=== PATIENT | female | born 1985 ===

== ENCOUNTER 2020-05-05 09:58 | Outpatient (REF) | payer MEDICAID, SELFPAY ==
--- NOTE | 2020-05-05 | US_ITS ---
EXAMINATION: US ABDOMEN COMPLETE CLINICAL INFORMATION: Abnormal level of serum enzymes. COMPARISON: None TECHNIQUE: Real-time imaging of the abdominal viscera. FINDINGS: PANCREAS: Normal. ABDOMINAL AORTA: The proximal, mid, and distal segments are normal in caliber. INFERIOR VENA CAVA: Visualized portions are normal. LIVER: The liver is normal in size. The liver contour is normal. There is diffuse increased liver parenchymal echogenicity, consistent with hepatic steatosis. No focal hepatic lesion. There is no intrahepatic biliary duct dilatation seen. GALLBLADDER: Normal. The gallbladder is physiologically distended without evidence of stones, sludge, polyps, wall thickening or pericholecystic fluid. COMMON BILE DUCT: Normal in caliber measuring 0.3 cm in diameter. RIGHT KIDNEY: Normal. No hydronephrosis. No renal calculi or focal parenchymal lesions. The kidney measures 12.1 cm in maximum dimension. LEFT KIDNEY: Normal. No hydronephrosis. No renal calculi or focal parenchymal lesions. The kidney measures 13.3 cm in maximum dimension. SPLEEN: Normal. The spleen measures 10.5 cm in maximum dimension. FREE FLUID: None. US/US abdomen complete IMPRESSION: Hepatic steatosis. Otherwise unremarkable abdominal ultrasound.
== END 2020-05-05 09:59 | disposition home or self-care (01) ==
LOC: HO.US 09:58
DX: R74.8 Abnormal levels of other serum enzymes (principal)
CPT/HCPCS: 76700

== ENCOUNTER → 2020-05-20 10:49 | Outpatient (BNVA) | payer MEDICAID, SELFPAY | PROVIDERS: PCP Nurse Practitioner Primary Care; Visit Provider Physician Assistant | DX: Z76.89 Persons encountering health services in other specified circumstances (principal) ==

== ENCOUNTER → 2020-06-04 08:22 | Outpatient (BNVA) | payer MEDICAID, SELFPAY | PROVIDERS: PCP Nurse Practitioner Primary Care; Visit Provider Surgery | DX: Z76.89 Persons encountering health services in other specified circumstances (principal) ==

== ENCOUNTER 2020-06-16 10:43 | Outpatient (REF) | payer MEDICAID, SELFPAY ==
--- NOTE | 2020-06-16 11:14 | ECG_ITS ---
Test Reason : R73.03 Blood Pressure : / mmHG Vent. Rate : 094 BPM Atrial Rate : 094 BPM P-R Int : 142 ms QRS Dur : 076 ms QT Int : 370 ms P-R-T Axes : 006 058 -11 degrees QTc Int : 462 ms Normal sinus rhythm Nonspecific ST and T wave abnormality Borderline ECG No previous ECGs available Referred By: Fei Mishra Electronically Signed By:LILLI MOODY
--- NOTE | 2020-06-16 11:33 | XR_ITS ---
EXAMINATION: XR CHEST CLINICAL INFORMATION: Diabetes. COMPARISON: None TECHNIQUE: 2 views of the chest were obtained. FINDINGS: No significant abnormality is noted involving the heart, lungs, mediastinum, bony thorax or soft tissues. XR/XR chest 2V IMPRESSION: Unremarkable chest examination.
[2020-06-16 12:11] LABS: Basophils Percent Auto 0.4 % (0-2); Eosinophils Absolute Auto 0.1 X10*3/uL (0.0-0.4); Eosinophils Percent Auto 1.2 % (0-4); Hematocrit 42.6 % (37-47); Hemoglobin 13.6 g/dl (12.0-16.0); Imm Gran Abs Auto 0.03 X10*3/uL (0.00-0.03); Imm Gran Pct Auto 0.6 % (0.0-0.4); Lymphocytes Absolute Auto 1.6 X10*3/uL (1.2-4.9); Lymphocytes Percent Auto 31.9 % (20-40); MANUAL DIFF FLAG NO; Mean Corpuscular HGB Conc 31.9 g/dl (31.0-35.0); Mean Corpuscular Hemoglobin 28.8 pg (27.0-33.0); Mean Corpuscular Volume 90.1 fL (80-98); Mean Platelet Volume 10.7 fL (9.4-12.3); Monocytes Absolute Auto 0.4 X10*3/uL (0.1-1.2); Monocytes Percent Auto 8.7 % (2-11); Neutrophils Absolute Auto 2.9 X10*3/uL (2.0-8.3); Neutrophils Percent Auto 57.2 % (45-73); Platelet Count 225 X10*3/uL (160-400); Red Blood Count 4.73 X10*6/uL (4.20-5.50); Red Cell Distribution Width 12.4 % (11.0-16.0); White Blood Count 5.1 X10*3/uL (4.8-10.8)
[2020-06-16 12:28] LABS: Alanine Aminotransferase 51 U/L (0-31); Albumin Level 4.4 g/dL (3.5-5.0); Alkaline Phosphatase 56 U/L (39-117); Anion Gap 12 (12-20); Aspartate Amino Transferase 26 U/L (5-31); Bilirubin Total 0.7 mg/dL (0.0-1.0); Blood Urea Nitrogen 12 mg/dL (9-16); Calcium 9.2 mg/dL (8.4-10.2); Carbon Dioxide 27 mmol/L (22-29); Chloride 105 mmol/L (96-108); Cholesterol 191 mg/dL; Estimated Glomerular Filt Rate > 60; Glucose Random 106 mg/dL (60-115); HDL Cholesterol 40 mg/dL; LDL Cholesterol Calculated 116 mg/dl; Potassium 4.1 mmol/l (3.3-5.1); Sodium 140 mmol/L (135-145); Total Protein 7.9 g/dL (6.5-8.0); Triglycerides 179 mg/dL
[2020-06-16 12:42] LABS: Estimated Average Glucose 114 mg/dL; Hemoglobin A1c % 5.6 %
[2020-06-16 12:51] LABS: Ferritin 120 ng/mL (10-122); Vitamin D 25-OH Total 20.2 ng/mL (>30)
[2020-06-16 13:52] LABS: Folate 11.6 ng/mL (> or = 4.0); Vitamin B12 249 pg/mL (200-900)
[2020-06-17 13:47] LABS: Insulin Level Total 33.6 uIU/mL
[2020-06-17 20:22] LABS: Calcium (PTHI) 9.4 mg/dL (8.6-10.2); PTHI 61 pg/mL (14-64)
[2020-06-19 00:48] LABS: Zinc 91 mcg/dL (60-130)
[2020-06-19 12:52] LABS: Vitamin B1 9 nmol/L (8-30)
[2020-06-23 18:23] LABS: Vitamin A 38 mcg/dL (38-98)
== END 2020-06-16 10:44 | disposition home or self-care (01) ==
LOC: HO.LAB 10:43
PROVIDERS: Visit Provider Surgery
DX: R73.03 Prediabetes (principal); K21.9 Gastro-esophageal reflux disease without esophagitis; J45.909 Unspecified asthma, uncomplicated; E66.9 Obesity, unspecified
CPT/HCPCS: 36415; 71046; 80053; 80061; 82306; 82607; 82728; 82746; 83036; 83525; 83970; 84425; 84443; 84590; 84630; 85025; 86140; 93005

== ENCOUNTER → 2020-06-24 12:58 | Outpatient (BNVA) | payer MEDICAID, SELFPAY | PROVIDERS: PCP Nurse Practitioner Primary Care; Visit Provider Dietitian, Registered | DX: Z76.89 Persons encountering health services in other specified circumstances (principal) ==

== ENCOUNTER 2020-06-30 09:38 | Outpatient (REF) | payer MEDICAID, SELFPAY ==
--- NOTE | 2020-06-30 09:46 | US_ITS ---
EXAMINATION: US ABDOMEN LIMITED WITH ELASTOGRAPHY CLINICAL INFORMATION: Pre-diabetes COMPARISON: Abdomen ultrasound complete 05/05/2020 TECHNIQUE: Limited right upper quadrant abdominal ultrasound performed. FINDINGS: The pancreatic head and the body is homogeneous in echotexture. The tail is obscured by overlying gas. The liver is diffusely echogenic consistent with fatty infiltration. There is focal fatty sparing around the gallbladder. No intrahepatic ductal dilatation seen. The right hepatic lobe measures 16.2 cm in length and the left hepatic lobe measures 13.0 cm in length. On Elastography, median value is 1.36 m/second. IQR/median is 0.11. US/US abdomen cristina w elastography IMPRESSION: 1. Hepatic steatosis with areas of focal fatty sparing anterior to gallbladder. 2. The rest of the limited abdomen ultrasound is unremarkable. 3. On Elastography, there is normal to mild fibrosis.
--- NOTE | 2020-06-30 09:46 | FL_ITS ---
EXAMINATION: XR GI SERIES CLINICAL INFORMATION: Prediabetes. Preop possible bariatric surgery. COMPARISON: None TECHNIQUE: Upper GI was performed using thin and thick barium and effervescent granules. FINDINGS: Esophageal motility is normal. There is gastroesophageal reflux. There is a small sliding hiatal hernia. The stomach and duodenum are normal-appearing. No fold thickening, mass, ulcer or stricture is seen. FLUOROSCOPY TIME: 1 minute DOSE AREA PRODUCT: 14 jasmine per centimeter squared. Total dose 53 mgy. 26 saved fluoroscopic images FL/FL upper GI series IMPRESSION: Gastroesophageal reflux and small sliding-type hiatal hernia.
== END 2020-06-30 09:39 | disposition home or self-care (01) ==
LOC: HO.XRAY 09:38
PROVIDERS: Visit Provider Surgery
DX: E66.9 Obesity, unspecified (principal); R73.03 Prediabetes; K21.9 Gastro-esophageal reflux disease without esophagitis; J45.909 Unspecified asthma, uncomplicated; I10 Essential (primary) hypertension; Z68.39 Body mass index [BMI] 39.0-39.9, adult
CPT/HCPCS: 74240; 76705; 76981

== ENCOUNTER → 2020-07-01 12:58 | Outpatient (BNVA) | payer MEDICAID, SELFPAY | PROVIDERS: Visit Provider Dietitian, Registered | DX: Z76.89 Persons encountering health services in other specified circumstances (principal) ==

== ENCOUNTER → 2020-07-02 08:23 | Outpatient (BNVA) | payer MEDICAID, SELFPAY | PROVIDERS: PCP Nurse Practitioner Primary Care; Visit Provider Surgery | DX: Z76.89 Persons encountering health services in other specified circumstances (principal) ==

== ENCOUNTER → 2020-07-03 13:19 | Outpatient (BNVA) | payer MEDICAID, SELFPAY | PROVIDERS: PCP Nurse Practitioner Primary Care; Visit Provider Physician Assistant | DX: Z76.89 Persons encountering health services in other specified circumstances (principal) ==

== ENCOUNTER 2020-07-04 13:50 | Outpatient (REF) | payer MEDICAID, SELFPAY ==
[2020-07-05 10:33] LABS: Follicle Stimulating Hormone 1.6 mIU/mL; Prolactin 2.9 ng/mL
[2020-07-05 12:25] LABS: BV Int Neg Control Negative (Negative); BV Int Pos Control Positive (Positive)
[2020-07-05 15:37] LABS: C. trachomatis RNA TMA NOT DETECTED (NOT DETECTED); N. gonorrhoeae RNA TMA NOT DETECTED (NOT DETECTED)
[2020-07-07 18:07] LABS: DHEA Sulfate 145 mcg/dL (23-266)
[2020-07-09 10:42] LABS: Testosterone, Free 1.9 pg/mL (0.1-6.4); Testosterone, Total 19 ng/dL (2-45)
[2020-07-09 15:02] LABS: HPV mRNA E6/E7 rflx Not Detected (Not Detected)
== END 2020-07-04 13:51 | disposition home or self-care (01) ==
LOC: HO.LAB 13:50
PROVIDERS: PCP Nurse Practitioner Primary Care; Visit Provider Advanced Practice Midwife
DX: Z12.4 Encounter for screening for malignant neoplasm of cervix (principal); R10.2 Pelvic and perineal pain; N92.6 Irregular menstruation, unspecified; L68.0 Hirsutism; R23.2 Flushing; E66.9 Obesity, unspecified
CPT/HCPCS: 36415; 81003; 81025; 82627; 83001; 83498; 84146; 84402; 84403; 87480; 87491; 87510; 87591; 87624; 87660; 88141; 88142; 99212

== ENCOUNTER 2020-07-16 14:10 | Outpatient (REF) | payer MEDICAID, SELFPAY ==
--- NOTE | 2020-07-16 14:15 | US_ITS ---
EXAMINATION: ULTRASOUND PELVIS CLINICAL INFORMATION: Irregular menses and hirsutism. COMPARISON: None TECHNIQUE: Transabdominal and transvaginal ultrasound imaging of pelvis is performed. FINDINGS: The uterus is anteverted and anteflexed measuring 7.5 cm in length, 4.1 cm in AP and 4.8 cm in transverse dimension. The endometrial thickness is 0.5 cm. The uterus is homogeneous in echotexture. Small anechoic cysts are seen in the cervix. The right ovary measures 5.7 x 4.4 x 5.1 cm and volume 67.0 mL. There are 2 complex cysts seen. They are adjacent to each other with a thick wall them. They also may represent bilobed cyst. The larger complex cyst measures 4.3 x 3.5 x 3.9 cm and has echogenic debris within. The smaller complex cyst measures 3.7 x 2.5 x 3.0 cm and has a hyperechoic solid lesion within. There is normal flow seen to the right ovary on Doppler exam. US/US pelvic complete IMPRESSION: 2 complex cysts in right ovary or one big complex cyst with thick septation in between. The small complex cyst has hyperechoic solid lesion within likely a nodule. The larger complex cyst has echogenic debris within. There is normal flow seen to right ovary. The uterus is unremarkable. There are small nabothian cysts seen within.
== END 2020-07-16 14:11 | disposition home or self-care (01) ==
LOC: HO.US 14:10
PROVIDERS: PCP Nurse Practitioner Primary Care; Visit Provider Advanced Practice Midwife
DX: N92.6 Irregular menstruation, unspecified (principal); L68.0 Hirsutism
CPT/HCPCS: 76830; 76856

== ENCOUNTER → 2020-07-18 09:56 | Outpatient (BNVA) | payer MEDICAID, SELFPAY | PROVIDERS: PCP Nurse Practitioner Primary Care; Visit Provider Physician Assistant ==

== ENCOUNTER 2020-07-23 13:59 | Outpatient (REF) | payer MEDICAID, SELFPAY ==
[2020-07-24 06:28] LABS: CA-125 7 U/mL (<35)
== END 2020-07-23 14:00 | disposition home or self-care (01) ==
LOC: HO.LAB 13:59
PROVIDERS: PCP Nurse Practitioner Primary Care; Visit Provider Advanced Practice Midwife
DX: Z71.2 Person consulting for explanation of examination or test findings (principal); N83.299 Other ovarian cyst, unspecified side
CPT/HCPCS: 36415; 86304; 99212

== ENCOUNTER → 2020-07-24 12:49 | Outpatient (REF) | payer MEDICAID, SELFPAY ==
--- NOTE | 2020-07-24 12:56 | CA_ITS ---
Transthoracic Echocardiogram Patient (Last, First, Middle): Yi mSith, Gender: Female Date of : 1985 Age: 35 Procedure Date: 07/24/2020 Procedure Type: Transthoracic Echocardiogram Location: OP Height: 165.1 cm Weight: 104.78 kg BSA: 2.10 m2 Heart Rate: bpm BP: 140 / 68 mmHg Rail Gang Supervisor: VANCE Garcia MD: Fei Mishra MD Symptoms: R94.31 - Abnormal electrocardiogram [ECG] [EKG] Study Quality: Good ECG Rhythm: Sinus Conclusions: - The left ventricular systolic function is normal. The visually estimated ejection fraction is between 60-65%. - No obvious valvular pathology seen on this study. Findings Procedure Information The patient declines contrast. Left Ventricle Normal left ventricular cavity size. There is normal left ventricular wall thickness. The left ventricular systolic function is normal. The visually estimated ejection fraction is between 60-65%. There is no evidence of regional wall motion abnormalities. Diastolic function is normal for age. Right Ventricle Normal right ventricular cavity size and systolic function. Atria Both atria are normal in size. Aortic Valve There is a normal trileaflet aortic valve. There is no aortic valve stenosis. There is no aortic valve regurgitation. Mitral Valve The mitral valve appears normal. There is no mitral valve regurgitation. There is no mitral valve stenosis. Pulmonic Valve The pulmonic valve was not well visualized. Tricuspid Valve Normal tricuspid valve structure. There is no tricuspid valve regurgitation. Tricuspid regurgitation envelope is inadequate for calculation of right ventricular systolic pressure. Great Vessels The asc aorta and aortic arch are normal in size. Venous The inferior vena cava is normal in size and collapses greater than 50% with inspiration. Pericardium/Pleural There is no evidence of pericardial effusion. Prior Study Comparison No prior study available for comparison. Recommendations, Care & Conclusions No obvious valvular pathology seen on this study. Measurements M-Mode Liner Measurements Normals - Women/Men AOV Cusps: 2.20 1.5-2.6 cm/m2 2D Linear Measurements IVSd: 0.90 0.6-0.9/0.6-1.0 cm LVIDd: 4.16 3.9-5.3/4.2-5.9 cm LVIDd Index: 1.98 2.4-3.2/2.2-3.1 cm/m2 LVIDs: 2.33 2.0-3.6 cm LVPWd: 0.98 0.7-1.1 cm Ao Root: 2.10 2.1-3.5 cm LA Diam: 3.30 2.7-3.8/3.0-4.0 cm LAIDs Index: 1.57 1.5-2.3 cm/m2 LV Mass: 154.86 67-162/88-224 g LV Mass Index: 73.74 43-95/49-115 g/m2 LVOT Diam: 1.10 3.0+(-)1.3 cm 2D Systolic Function EF 4C: 63.60 >55% EF 2C: 67.40 >55% EF BiP: 62.90 >55% Mitral Valve MV Pk E: 0.75 MV PK A: 0.76 MV Decel Time: 313.00 E/A: 1.00 E'Lateral: 12.90 E'Medial: 7.51 E/E' Med: 9.90 E/E' Lat: 5.80 PHT: 92.00 MVA PHT: 2.39 Decel [place]: 2.38 Aortic Valve AoV Pk Monty: 1.54 AoV Pk Grad: 9.00 LVOT LVOT Pk Monty: 1.07 LVOT Mn Monty: 0.72 LVOT VTI: 0.21 LVOT Pk Grad: 5.00 LVOT Mn Grad: 3.00 LVOT Diam: 1.10 LVOT Area: 0.95 Diastolic Function MV Pk E: 0.75 MV Pk A: 0.76 E/A: 1.00 E'Medial: 7.51 E/E' Med: 9.90 E' Laterial: 12.90 E/E' Lat: 5.80 Tricuspid Valve RA Press: 3.00 Great Vessels Aorta Ao Root-2D: 2.10 2.0-3.7 cm Ao Asc: 2.20 2.1-3.4 cm Ao Arch: 2.50 Pulmonary Valve PV Pk Monty: 1.02 Peak PV Grad: 4.00 Updated in Other Vendor System with Status of Final Raciel Xavier MD electronically signed on 07/26/2020 1:15:13 PM with status of Final
== END ==
LOC: HO.CARD 12:49
PROVIDERS: Visit Provider Surgery
DX: Z01.818 Encounter for other preprocedural examination (principal); I10 Essential (primary) hypertension
CPT/HCPCS: 93306

== ENCOUNTER → 2020-07-30 08:22 | Outpatient (BNVA) | payer MEDICAID, SELFPAY | PROVIDERS: PCP Nurse Practitioner Primary Care; Visit Provider Dietitian, Registered ==